=== PATIENT | male | born 1970 | race Hispanic/Latino ===

== ENCOUNTER 2017-01-03 20:30 | Emergency (ER) | payer MEDICAID, OTHER ==
[2017-01-03 20:37] VITALS: BP 129/80; RESP 16; TEMP 98.1; O2SAT 97
[2017-01-03] MEDS ORDERED: Alum-Mag Hydrox-Simethicone Susp (30 mL) PO ONE (21:22)
--- NOTE | 2017-01-03 21:33 | ED PDOC ---
HPI: Chest Pain History Per: Patient History/Exam Limitations: no limitations Onset/Duration Of Symptoms: Days (1.5 weeks) Current Symptoms Are (Timing): Intermittent Episodes Severity: Mild Quality: Burning, Pressure Associated Symptoms: denies: Nausea, Dyspnea, Diaphoresis, Syncope - Risk Factors PE Risk Factors: Neg: Extremity Immobilization/Fx, Decreased Mobilty /Activity, Recent Major Surgery, Recent Hospitalization, Active Cancer, Previous DVT, Previous PE, CHF, Venous Stasis, Recent Major Trauma TAD Risk Factors: Neg: Hypertension, Connective Tissue Disease, Marfan's Syndrome, Eleazar- Danlos Syndrome, Aortic Valve Disease, First Degree Relative With TAD, Sudden Onset Of Pain, Migration Of Pain, New Neurologic Symptoms <Cristi Felder - Last Filed: 01/03/17 23:20> <Arabella Russo - Last Filed: 01/03/17 23:32> Time Seen by Provider: 01/03/17 20:41 Chief Complaint (Nursing): Chest Pain Additional Complaint(s): CC: chest pain HPI: The patient is a 46 y/o man w/ no PMH presents to the ED for chest pain. The patient reports 1.5 weeks of intermittent chest pain, burning in nature, radiation to left and right, but denies nausea, vomiting, SOB, and hemoptysis. The patient came to the ED because he was worried that he had an MT. The patient has an appointment with PMD on 01/16 but was not able to see sooner. The patient reports eating plenty of junk food and drinking soda and redbull which exacerbate symptoms. The patient is relieved when consuming activia yogurt. The patient reports an extensive smoking history of 2 packs/day for almost 30 years. 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 The patient denies headaches, dizziness, cough, SOB, diarrhea, dysuria, and fevers. Allergies: NKDA PMH: none PSH: left elbow pinning 1978 Fam: non-contributory SOC: smokes 2 packs/day for 29 years, sober fro alcohol and rugs for +4 years ROS: negative for 10 systems reviewed except noted in HPI (Cristi Felder) Supervising Attending Note - Supervising Attending Note The Documented history was done by the: Physician Dirt Supervisor, Attending Physician The documented physical exam was done by the: Physician Dirt Supervisor, Attending Physician The documented procedures were done by the: Physician Dirt Supervisor, Attending Physician - Attestation: I have personally seen and examined this patient.: Yes I have fully participated in the care of the patient.: Yes I have reviewed all pertinent clinical information: Yes <Arabella Russo - Last Filed: 01/03/17 23:32> Past Medical History - Medical History PMH: Denies: Chronic Kidney Disease - Family History Family History: States: Unknown Family Hx <Cristi Felder - Last Filed: 01/03/17 23:20> <Arabella Russo - Last Filed: 01/03/17 23:32> Vital Signs: Last Vital Signs Temp 98.1 F 01/03/17 20:37 Pulse 77 01/03/17 20:37 Resp 16 01/03/17 20:37 BP 129/80 01/03/17 20:37 Pulse Ox 97 01/03/17 23:23 - Home Medications Home Medications: Ambulatory Orders Medication Instructions Recorded Famotidine [Pepcid] 20 mg PO DAILY #14 tab 01/03/17 - Allergies Allergies/Adverse Reactions: Allergies Allergy/AdvReac Type Severity Reaction Status Date / Time shellfish derived Allergy Unknown ANAPHYLAXIS Verified 08/25/16 11:42 MICHELLE Risk Score for UA/NSTEMI - MICHELLE Risk Score Age > 64: NO 3 or more CAD Risk Factors: NO Known CAD (Stenosis greater than 50%): NO Aspirin use in past 7 days: NO Severe Angina: NO EKG ST changes greater than 0.5mm: NO Positive Cardiac Marker: NO MICHELLE Score: 0 Risk %: 5% <Cristi Felder - Last Filed: 01/03/17 23:20> Curb-65 Severity Score - CURB-65 Severity Score Confusion: No Bun >19mg/dl (>7mmol/L): No Respiratory Rate greater than/equal to 30: No Systolic BP <90 or Diastolic BP less than/equal 60mmHg: No Age >64: No Curb-65 Score: 0 Percentage 30-day mortality: 0.6% <Cristi Felder - Last Filed: 01/03/17 23:20> Wells Criteria for PE - Wells Criteria for Pulmonary Embolism Clinical Signs and Symptoms of DVT: No P.E is #1 Diagnosis, or Equally Likely: No Heart Rate >100: No Immobilization at least 3 days;Surgery previous 4 weeks: No Previous, objectively diagnosed PE or DVT: No Hemoptysis: No Malignancy w/treatment within 6 months, or palliative: No Total Score: 0 <Cristi Felder - Last Filed: 01/03/17 23:20> Review of Systems Constitutional: Negative for: Fever, Sweats Eyes: Negative for: Pain ENT: Negative for: Throat Pain Cardiovascular: Positive for: Chest Pain. Negative for: Palpitations, Edema, Light Headedness Respiratory: Negative for: Cough, Shortness of Breath, Hemoptysis, SOB with Exertion, Sputum, Wheezing Gastrointestinal: Negative for: Nausea, Vomiting, Abdominal Pain, Diarrhea, Constipation Genitourinary Male: Negative for: Dysuria Musculoskeletal: Negative for: Neck Pain, Arm Pain Skin: Negative for: Rash Neurological: Negative for: Altered Mental Status, Headache <Cristi Felder - Melecio Filed: 01/03/17 23:20> Physical Exam - Physical Exam Appears: Positive for: No Acute Distress Head Exam: Positive for: ATRAUMATIC, NORMOCEPHALIC Skin: Positive for: Normal Color (multiple tattoos), Warm, Dry Eye Exam: Positive for: EOMI, PERRL Neck: Positive for: Normal, Painless ROM, Supple Cardiovascular/Chest: Positive for: Regular Rate, Rhythm, Chest Non Tender. Negative for: Edema, JVD, Murmur, Tachycardia Respiratory: Positive for: Normal Breath Sounds. Negative for: Decreased Breath Sounds, Accessory Muscle Use, Crackles, Rales, Rhonchi, Stridor, Wheezing , Respiratory Distress Pulses-Carotid (L): 2+ Pulses-Carotid (R): 2+ Pulses-Post. Tibialis (L): 2+ Pulses-Post. Tibialis (R): 2+ Pulses-Radial (L): 2+ Pulses-Radial (R): 2+ Gastrointestinal/Abdominal: Positive for: Normal Exam, Bowel Sounds, Soft. Negative for: Tenderness, Distended Extremity: Positive for: Normal ROM. Negative for: Pedal Edema, Calf Tenderness Neurologic/Psych: Positive for: Alert, Oriented <Cristi Felder - Last Filed: 01/03/17 23:20> - Laboratory Results Result Diagrams: 01/03/17 22:24 01/03/17 22:24 - ECG O2 Sat by Pulse Oximetry: 97 <Cristi Felder - Last Filed: 01/03/17 23:20> - Laboratory Results Result Diagrams: 01/03/17 22:24 01/03/17 22:24 - ECG ECG: Positive for: Interpreted By Me, Viewed By Me ECG Rhythm: Positive for: Normal QRS, Normal ST Segment, Sinus Rhythm. Negative for: ST/T Changes Rate: 73 <Arabella Russo - Last Filed: 01/03/17 23:32> Medical Decision Making <Cristi Felder - Last Filed: 01/03/17 23:20> <Arabella Russo - Last Filed: 01/03/17 23:32> Medical Decision Making: The patient is a 46 y/o man w/ no PMH presents to the ED for chest pain 21:00 EKG: NSR, no ST elevation/depression, no inverted T waves CBC w/ diff CMP troponin Maalox PO Pepcid PO re-evaluate smoking cessation counseling counseled on importance of follow up with PMD (Cristi Felder) Disposition - Patient ED Disposition Is Patient to be Admitted: No Discussed With : Arabella Russo Doctor Will See Patient In The: Office Counseled Patient/Family Regarding: Studies Performed, Diagnosis, Need For Followup, Rx Given, Smoking Cessation - Disposition Disposition: Routine/Home Disposition Time: 23:21 - POA Present On Arrival: None <Cristi Felder - Last Filed: 01/03/17 23:20> <Arabella Russo - Last Filed: 01/03/17 23:32> - Clinical Impression Clinical Impression: GERD (gastroesophageal reflux disease) - Disposition Referrals: [facility] [Outside] Condition: GOOD Additional Instructions: Please follow up with PMD as scheduled on 01/16/2017 If chest pain returns worse with shortness of breath, nausea, vomiting, palpitations, faintness/lightheadedness please return to ED Prescriptions: Famotidine [Pepcid] 20 mg PO DAILY #14 tab Instructions: Chest Pain (ED)
[2017-01-03] MEDS ORDERED: Alum-Mag Hydrox-Simethicone Susp (30 mL) ONE (22:02)
[2017-01-03 22:29] LABS: BASO # 0.1 K/uL (0.0-0.2); BASO % 0.5 % (0.0-2.0); EOS # 0.2 K/uL (0.0-0.7); EOS % 1.8 % (0.0-4.0); HEMATOCRIT 42.3 % (35.0-51.0); LYMPH # 4.7 K/uL (1.0-4.3); LYMPH % 41.2 % (20.0-40.0); MEAN CELL VOLUME 88.7 fl (80.0-94.0); MEAN CORPUSCULAR HEMOGLOBIN 30.2 pg (27.0-31.0); MEAN CORPUSCULAR HGB CONC 34.1 g/dL (33.0-37.0); MEAN PLATELET VOLUME 7.2 fl (7.2-11.7); MONO # 0.9 K/uL (0.0-0.8); MONO % 7.9 % (0.0-10.0); NEUT # 5.5 K/uL (1.8-7.0); NEUT % 48.6 % (50.0-75.0); NRBC % 0.1 % (0.0-0.0); RED CELL DISTRIBUTION WIDTH 13.6 % (11.5-14.5); WHITE BLOOD COUNT 11.3 K/uL (4.8-10.8)
[2017-01-03 22:53] LABS: ALB/GLOB RATIO 1.3 (1.0-2.1); ALKALINE PHOSPHATASE 85 U/L (38-126); ALT/SGPT 35 U/L (21-72); AST/SGOT 28 U/L (17-59); BILIRUBIN,TOTAL 0.5 mg/dl (0.2-1.3); BLOOD UREA NITROGEN 17 mg/dl (9-20); CALCIUM 9.4 mg/dL (8.4-10.2); CARBON DIOXIDE 24 mmol/L (22-30); CHLORIDE 107 mmol/L (98-107); GFR AFRICAN-AMERICAN > 60; GLUCOSE,RANDOM 89 mg/dL (75-110); POTASSIUM 3.8 MMOL/L (3.6-5.0); SODIUM 141 mmol/l (132-148); TOTAL PROTEIN 6.8 G/DL (6.3-8.2)
[2017-01-03 23:32] VITALS: PULSE 73
--- NOTE | 2017-01-04 10:02 | CARD ---
APPROVED REPORT EKG Measurement Heart [id number] <Conclusion> Normal sinus rhythm Normal ECG
== END 2017-01-03 23:33 | disposition home or self-care (01) ==
LOC: H.ER 20:30
DX: K21.9 Gastro-esophageal reflux disease without esophagitis (principal)

== ENCOUNTER 2017-03-25 16:03 | Emergency (ER) | payer OTHER ==
[2017-03-25 16:26] VITALS: BP 131/72; PULSE 84; RESP 18; TEMP 98; O2SAT 98
--- NOTE | 2017-03-25 17:08 | ED PDOC ---
HPI: CCC, URI, Sore Throat Time Seen by Provider: 03/25/17 16:35 Chief Complaint (Nursing): ENT Problem Chief Complaint (Provider): Sore Throat History Per: Patient History/Exam Limitations: no limitations Onset/Duration Of Symptoms: Waxing/Waning ("on and off for two months") Current Symptoms Are (Timing): Still Present Associated Symptoms: Fever Additional Complaint(s): Sung Zepeda is a 46 year old male that presents to the ED with a chief complaint of a sore throat that he has been experiencing "on and off for the past two months," along with swelling around his neck. Patient also noted an associated fever this morning. He states that he took Amoxicillin that he had at home, as well as a three day course of Zithromax, and Cephalexin. Patient denies any vomiting or diarrhea. Past Medical History Reviewed: Historical Data, Nursing Documentation, Vital Signs Vital Signs: Last Vital Signs Temp 98 F 03/25/17 16:12 Pulse 84 03/25/17 16:12 Resp 18 03/25/17 16:12 BP 131/72 03/25/17 16:12 Pulse Ox 98 03/25/17 17:11 - Medical History PMH: Denies: Chronic Kidney Disease - Family History Family History: States: Unknown Family Hx - Social History Current smoker - smoking cessation education provided: Yes (heavy smoker) - Home Medications Home Medications: Ambulatory Orders Medication Instructions Recorded Famotidine [Pepcid] 20 mg PO DAILY #14 tab 01/03/17 Ranitidine HCl [Zantac] 150 mg PO DAILY #7 tablet 03/25/17 - Allergies Allergies/Adverse Reactions: Allergies Allergy/AdvReac Type Severity Reaction Status Date / Time shellfish derived Allergy Unknown ANAPHYLAXIS Verified 08/25/16 11:42 Review of Systems Constitutional: Positive for: Fever (this morning) ENT: Positive for: Throat Pain, Throat Swelling (Patient reports swelling around his neck) Gastrointestinal: Negative for: Vomiting, Diarrhea Physical Exam - Reviewed Nursing Documentation Reviewed: Yes Vital Signs Reviewed: Yes - Physical Exam Appears: Positive for: Non-toxic, No Acute Distress Head Exam: Positive for: ATRAUMATIC, NORMOCEPHALIC Skin: Positive for: Normal Color, Warm ENT: Positive for: Pharyngeal Erythema (minimal), Other (Patient is able to open and close jaw.). Negative for: Tonsillar Exudate, Tonsillar Swelling Cardiovascular/Chest: Positive for: Regular Rate, Rhythm. Negative for: Murmur Respiratory: Positive for: Normal Breath Sounds. Negative for: Wheezing Neurologic/Psych: Positive for: Alert, Oriented. Negative for: Motor/Sensory Deficits - ECG O2 Sat by Pulse Oximetry: 98 (RA) Pulse Ox Interpretation: Normal - Progress ED Course And Treament: mono neg rapid strep neg tsh wnl Medical Decision Making Medical Decision Making: Impression: Sore Thorat Plan: * TSH * [place] * Rapid Strep * Reevaluation Scribe Attestation: Documented by Lynne Aguayo, acting as a scribe for Nico Fishman PA-C. Provider Scribe Attestation: All medical record entries made by the Scribe were at my direction and personally dictated by me. I have reviewed the chart and agree that the record accurately reflects my personal performance of the history, physical exam, medical decision making, and the department course for this patient. I have also personally directed, reviewed, and agree with the discharge instructions and disposition. Disposition - Clinical Impression Clinical Impression: Sore throat - Patient ED Disposition Is Patient to be Admitted: No - Disposition Referrals: Adrien Ansari MD [Staff Provider] - Disposition: Routine/Home Disposition Time: 18:13 Condition: FAIR Prescriptions: Ranitidine HCl [Zantac] 150 mg PO DAILY #7 tablet Instructions: Pharyngitis (ED) Forms: [employer] (Guatemalan)
== END 2017-03-25 18:34 | disposition home or self-care (01) ==
LOC: H.ER 16:03
DX: J02.9 Acute pharyngitis, unspecified (principal)

== ENCOUNTER 2017-12-04 00:57 | Emergency (ER) | payer SELFPAY ==
[2017-12-04 01:49] VITALS: PULSE 81; RESP 16; TEMP 98.4; O2SAT 96
[2017-12-04] MEDS ORDERED: Lidocaine 2% Inj (20ml) INFIL ONE (02:09)
[2017-12-04] MEDS ORDERED: Lidocaine 2% Inj (20ml) ONE (02:15)
--- NOTE | 2017-12-04 02:43 | ED PDOC ---
Upper Extremity Pain/Injury Time Seen by Provider: 12/04/17 01:52 Chief Complaint (Nursing): Finger,Hand,&Wrist History Per: Patient History/Exam Limitations: no limitations Onset/Duration Of Symptoms: Days Additional Complaint(s): Smoker, pain and swelling to L middle finger x 3 days, acutely worsened today. 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 Denies fevers. Past Medical History Reviewed: Historical Data, Nursing Documentation, Vital Signs Vital Signs: Last Vital Signs Temp 98.4 F 12/04/17 01:47 Pulse 81 12/04/17 01:47 Resp 16 12/04/17 01:47 BP Pulse Ox 96 12/04/17 01:47 - Medical History PMH: No Chronic Diseases Denies: Chronic Kidney Disease - Family History Family History: States: Unknown Family Hx - Home Medications Home Medications: Ambulatory Orders Medication Instructions Recorded Famotidine [Pepcid] 20 mg PO DAILY #14 tab 01/03/17 Ranitidine HCl [Zantac] 150 mg PO DAILY #7 tablet 03/25/17 - Allergies Allergies/Adverse Reactions: Allergies Allergy/AdvReac Type Severity Reaction Status Date / Time shellfish derived Allergy Unknown ANAPHYLAXIS Verified 08/25/16 11:42 Review of Systems ROS Statement: Except As Marked, All Systems Reviewed And Found Negative Physical Exam - Physical Exam Appears: Positive for: Well Extremity: Positive for: Other (3rd finger of L hand- tip of finger w/ medial swelling and slight erythema, no vesicles) - ECG O2 Sat by Pulse Oximetry: 96 Pulse Ox Interpretation: Normal Medical Decision Making Medical Decision Making: Patient with paronychia, will drain and recommend warm compress to reduce swelling. not concerned for murtaza. Procedures - Incision and Drainage Site: L 3rd finger Blade Size: 10 I & D Procedure: betadine prep Progress: 5cc's of lidocaine used for digital block 10 blade used to lift cuticle and express fluid Disposition - Clinical Impression Clinical Impression: Paronychia - Patient ED Disposition Is Patient to be Admitted: No - Disposition Referrals: [facility] [Outside] Disposition: Routine/Home Disposition Time: 02:44 Condition: IMPROVED Instructions: Paronychia
[2017-12-04 03:10] VITALS: BP 133/71
== END 2017-12-04 03:38 | disposition home or self-care (01) ==
LOC: H.ER 00:57
DX: L03.019 Cellulitis of unspecified finger (principal)

== ENCOUNTER 2018-05-24 13:06 | Emergency (ER) | payer MEDICAID ==
[2018-05-24 13:25] VITALS: O2SAT 98
[2018-05-24] MEDS ORDERED: Albuterol-Ipratrop 3 mg / 0.5 (3 ml) UD INH STA (13:36)
[2018-05-24] MEDS ORDERED: Albuterol 0.083% Inhal Sol (2.5 mg/3 mL) UD INH STA (13:36)
[2018-05-24] MEDS ORDERED: guaiFENesin 200 mg/10 ml Syrup UD PO STA (13:40)
--- NOTE | 2018-05-24 13:48 | ED PDOC ---
HPI: Influenza Time Seen by Provider: 05/24/18 13:14 Chief Complaint: Cough, Cold, Congestion Chief Complaint (Provider): Cough History Per: Patient Exam Limitations: no limitations Onset/Duration Of Symptoms: Other (x2 weeks) Additional complaint(s):: 47 year old male presents to the ED for evaluation of worsening productive cough for the last 2 weeks. Patient states he gave his current symptoms to significant other who is also being evaluated in the ED. Reports productive cough with green phlegm. Reports tactile fever at onset and recent travel to [place]. Significant other had Amoxicillin from [place] so patient took 9 doses of 500mg but denied taking medications today. Denies chills, ear pain, throat pain, abdominal pain, chest pain, headache, dizziness, nausea, vomiting, diarrhea, or rash. Of note, patient admits to smoking 2 packs of cigarettes daily. PMD: none Past Medical History Reviewed: Historical Data, Nursing Documentation, Vital Signs Vital Signs: Last Vital Signs Temp 98.1 F 05/24/18 13:23 Pulse 79 05/24/18 13:23 Resp 20 05/24/18 13:23 BP 118/71 05/24/18 13:23 Pulse Ox 98 05/24/18 13:23 - Medical History PMH: No Chronic Diseases - Surgical History Other surgeries: ORIF of left elbow - Family History Family History: States: Unknown Family Hx - Social History Current smoker - smoking cessation education provided: Yes (2 packs daily) Alcohol: Other (Former alcoholic, clean 5 years) Drugs: Cocaine (Former cocaine abuser, clean 5 years) - Home Medications Home Medications: Ambulatory Orders Medication Instructions Recorded Famotidine [Pepcid] 20 mg PO DAILY #14 tab 01/03/17 Ranitidine HCl [Zantac] 150 mg PO DAILY #7 tablet 03/25/17 Albuterol Sulfate [Ventolin Hfa] 1 puff IH Q4 #1 unit 05/24/18 Azithromycin [Z-Kavin] 250 mg PO DAILY #6 tab 05/24/18 Promethazine DM [Phenergan DM 5 ml PO Q6 PRN #150 ml 05/24/18 Syrup] - Allergies Allergies/Adverse Reactions: Allergies Allergy/AdvReac Type Severity Reaction Status Date / Time shellfish derived Allergy Unknown ANAPHYLAXIS Verified 05/24/18 13:23 Review of Systems ROS Statement: Except As Marked, All Systems Reviewed And Found Negative Constitutional: Negative for: Chills ENT: Negative for: Ear Pain, Throat Pain Cardiovascular: Negative for: Chest Pain Respiratory: Positive for: Cough (productive) Gastrointestinal: Negative for: Nausea, Vomiting, Abdominal Pain, Diarrhea Skin: Negative for: Rash Neurological: Negative for: Headache, Dizziness Physical Exam - Reviewed Nursing Documentation Reviewed: Yes Vital Signs Reviewed: Yes - Physical Exam Comments: GENERAL APPEARANCE: Patient is awake, alert, oriented x 3, in no acute distress. Resting comfortably and speaking in full sentences. SKIN: Warm, dry; (-) cyanosis. ENMT: Mucous membranes moist. Airway patent: (-) stridor. Pharynx: clear, uvula midline (-) erythema, (-) exudate. TMs: nonbulging, nonerythematous bilaterally. Nares: patent. (-) sinus tenderness. NECK: Supple, FROM (-) tenderness, (-) stiffness, (-) lymphadenopathy. CHEST AND RESPIRATORY: (+) scattered rhonchi, (-) rales, (-) wheezes; breath sounds decreased bilaterally. Respirations even and nonlabored. HEART AND CARDIOVASCULAR: (-) irregularity ABDOMEN AND GI: Soft; (-) tenderness (-) guarding (-) distention. EXTREMITIES: (-) deformity; (-) edema. NEURO AND PSYCH: Mental status as above. Cranial nerves grossly intact; strength symmetric. EOMI. Gait: steady. Speech: clear. (-) facial asymmetry (-) aphasia (-) focal findings Medical Decision Making Medical Decision Making: Initial Impression: Acute cough, probable bronchitis Initial Plan: Chest X-ray Albuterol 2.5mg INH Duoneb INH Robitussin 200mg PO Patient counselled on smoking cessation. Re-evaluation 244 Date of service: 05/24/2018 HISTORY: cough x2 weeks COMPARISON: Chest radiograph dated 02/19/2013 TECHNIQUE: Chest PA and lateral FINDINGS: LUNGS: No active pulmonary disease. PLEURA: No significant pleural effusion identified. No pneumothorax apparent. CARDIOVASCULAR: Normal. OSSEOUS STRUCTURES: No significant abnormalities. VISUALIZED UPPER ABDOMEN: Normal. OTHER FINDINGS: None. IMPRESSION: No active disease. Given rhonchi on exam and history of heavy smoking, Azithromycin 500mg PO ordered for clinical bronchitis. 1515 On re-evaluation, patient reports improvement of symptoms. On exam, patient remains AAOx3, in no acute distress. Lungs clear to auscultation, cardiac RRR, repeat neuro exam shows no focal findings. Vitals stable. Lab/Diagnostic results d/w the patient in great detail. Diagnosis of acute cough, tobacco abuse, bronchitis d/w the patient. Based on history, exam and diagnostic results, plan will be for outpatient follow up. Patient instructed to follow-up with pmd / referral provided / the clinic in 1- 2 days without fail. Advised to take medication as prescribed. Return to the emergency room at any time for any new or worsening symptoms. Patient states he fully agrees with and understands discharge instructions. States that he agrees with the plan and disposition. Verbalized and repeated discharge instructions and plan. I have given the patient opportunity to ask any additional questions. Scribe Attestation: Documented by Gulshan Gardner acting as a scribe for Maureen WHITLEY. Provider Scribe Attestation: All medical record entries made by the Scribe were at my direction and personally dictated by me. I have reviewed the chart and agree that the record accurately reflects my personal performance of the history, physical exam, medical decision making, and the department course for this patient. I have also personally directed, reviewed, and agree with the discharge instructions and disposition. - ECG O2 Sat by Pulse Oximetry: 98 (RA) Pulse Ox Interpretation: Normal Disposition - Clinical Impression Clinical Impression: Cough, Bronchitis, Tobacco abuse, Congestion of upper respiratory tract - Patient ED Disposition Is Patient to be Admitted: No Counseled Patient/Family Regarding: Studies Performed, Diagnosis, Need For Followup, Rx Given, Smoking Cessation - Disposition Referrals: [facility] [Outside] Disposition: Routine/Home Disposition Time: 15:15 Condition: STABLE Additional Instructions: The emergency medical care you received today was directed at your acute symptoms. If you were prescribed any medication, please fill it and take as directed. It may take several days for your symptoms to resolve. Return to the Emergency Department if your symptoms worsen, do not improve, or if you have any other problems. Please contact your doctor in 2 days for re-evaluation and follow up / or call one of the physicians/clinics you have been referred to that are listed on the Patient Visit Information form that is included in your discharge packet. Bring any paperwork you were given at discharge with you along with any medications you are taking to your follow up visit. Our treatment cannot replace ongoing medical care by a primary care provider (PCP) outside of the emergency department. Prescriptions: Albuterol Sulfate [Ventolin Hfa] 1 puff IH Q4 #1 unit Azithromycin [Z-Kavin] 250 mg PO DAILY #6 tab Promethazine DM [Phenergan DM Syrup] 5 ml PO Q6 PRN #150 ml PRN Reason: Cough Instructions: Cough in Adults, Smoking: Not Just Harmful to Your Lungs and Heart, Acute Bronchitis, Bacterial Upper Respiratory Infection, Adult Forms: [facility] (Divehi) Print Language: ICELANDIC - POA Present On Arrival: None
[2018-05-24] MEDS ORDERED: guaiFENesin 100 mg/5 ml Syrup UD ONE (13:49)
[2018-05-24] MEDS ORDERED: guaiFENesin 100 mg/5 ml Syrup UD PO STA (14:18)
--- NOTE | 2018-05-24 14:30 | RAD ---
Date of service: 05/24/2018 HISTORY: cough x2 weeks COMPARISON: Chest radiograph dated 02/19/2013 TECHNIQUE: Chest PA and lateral FINDINGS: LUNGS: No active pulmonary disease. PLEURA: No significant pleural effusion identified. No pneumothorax apparent. CARDIOVASCULAR: Normal. OSSEOUS STRUCTURES: No significant abnormalities. VISUALIZED UPPER ABDOMEN: Normal. OTHER FINDINGS: None. IMPRESSION: No active disease.
[2018-05-24 16:19] VITALS: BP 122/78; PULSE 76; RESP 16; TEMP 98
== END 2018-05-24 15:50 | disposition home or self-care (01) ==
LOC: H.ER 13:06
DX: J40 Bronchitis, not specified as acute or chronic (principal); R05 Cough; R09.89 Other specified symptoms and signs involving the circulatory and respiratory systems; F17.200 Nicotine dependence, unspecified, uncomplicated

== ENCOUNTER 2018-08-22 12:22 | Emergency (ER) | payer SELFPAY ==
[2018-08-22] MEDS ORDERED: Naproxen 500 MG TAB PO STA (12:36)
[2018-08-22] MEDS ORDERED: Naproxen 500 MG TAB PO ONE (12:44)
--- NOTE | 2018-08-22 12:45 | ED PDOC ---
Lower Extremity Pain/Injury Time Seen by Provider: 08/22/18 12:32 Chief Complaint (Nursing): Lower Extremity Problem/Injury Chief Complaint (Provider): Right Foot Pain History Per: Patient History/Exam Limitations: no limitations Onset/Duration Of Symptoms: Days (x1 month) Current Symptoms Are (Timing): Still Present Additional Complaint(s): 47 year old male presents to the ED for evaluation of right foot pain for the past month. Patient reports that he is unsure if he stepped on something, but feels as if there is a foreign body in his heel. Denies trauma, falls, or taking meds prior to arrival. He notes the pain has been worsening and now he cannot walk barefoot because of it. At onset of sx, he states he blindly attempted to remove the possible foreign body, but was unsuccessful. Denies other complaints. PMD: none provided Past Medical History Reviewed: Historical Data, Nursing Documentation, Vital Signs - Medical History PMH: Fractures - Surgical History Other surgeries: surgery for left elbow fx - Family History Family History: States: Unknown Family Hx - Social History Current smoker - smoking cessation education provided: Yes (heavy) Alcohol: Other (former alcohol abuser (recovering x3 years)) Drugs: Other (former drug abuser (recovering x3 years)) - Home Medications Home Medications: Ambulatory Orders Medication Instructions Recorded Famotidine [Pepcid] 20 mg PO DAILY #14 tab 01/03/17 Ranitidine HCl [Zantac] 150 mg PO DAILY #7 tablet 03/25/17 Albuterol Sulfate [Ventolin Hfa] 1 puff IH Q4 #1 unit 05/24/18 RX: Azithromycin [Z-Kavin] 250 mg PO DAILY #6 tab 05/24/18 RX: Promethazine DM [Phenergan DM 5 ml PO Q6 PRN #150 ml 05/24/18 Syrup] RX: Naproxen 500 mg PO BID PRN #20 tab 08/22/18 - Allergies Allergies/Adverse Reactions: Allergies Allergy/AdvReac Type Severity Reaction Status Date / Time shellfish derived Allergy Unknown ANAPHYLAXIS Verified 05/24/18 13:23 Review of Systems ROS Statement: Except As Marked, All Systems Reviewed And Found Negative Musculoskeletal: Positive for: Foot Pain (right, worsening) Physical Exam - Reviewed Nursing Documentation Reviewed: Yes Vital Signs Reviewed: Yes - Physical Exam Comments: GENERAL APPEARANCE: Patient is awake, alert, oriented x 3, in no acute distress. Resting comfortably. SKIN: Warm, dry; (-) cyanosis. NECK: Supple ENT: Mucus membranes moist. Airway patent, (-) stridor. RIGHT LOWER EXTREMITY: Foot: Full ROM, (+) mild tenderness to medial aspect of heel with a 1cm x 1cm callous present to the hindfoot, (-) palpable or visualized foreign body, (-) erythema, (-) edema (-) warmth (-) tenderness. Remainder of foot and LE nontender with full ROM (-) tenderness. (+) distal pulse. CARDIOVASCULAR: RRR RESPIRATORY: lungs cleared to auscultation bilaterally (-) rales (-) wheezing (- ) rhonchi NEUROLOGIC: (+) distal sensation. Medical Decision Making Medical Decision Making: Initial Impression: concern for possible foreign body in foot Time: 1235 Initial Plan: --Naproxen 500mg PO --Right foot XR --Re-evaluation 1335 Foot XR: (-) fracture (-) visualized FB as read by Ga POLLOCK On re-evaluation, patient reports improvement of symptoms. On exam, patient remains AAOx3, in no acute distress. Vitals stable. Lab/Diagnostic results d/w the patient in great detail. Diagnosis of acute foot pain d/w the patient. Based on history, exam and diagnostic results, plan will be for outpatient follow up with podiatry. Patient instructed to follow-up with pmd / referral provided / the clinic in 1- 2 days without fail. Advised to take medication as prescribed. Return to the emergency room at any time for any new or worsening symptoms. Patient states he fully agrees with and understands discharge instructions. States that he agrees with the plan and disposition. Verbalized and repeated discharge instructions and plan. I have given the patient opportunity to ask any additional questions. Scribe Attestation: Documented by Lena Wagner, acting as a scribe for Maureen Koroma PA-C. Provider Scribe Attestation: All medical record entries made by the Scribe were at my direction and personally dictated by me. I have reviewed the chart and agree that the record accurately reflects my personal performance of the history, physical exam, medical decision making, and the department course for this patient. I have also personally directed, reviewed, and agree with the discharge instructions and disposition. Disposition - Clinical Impression Clinical Impression: Acute foot pain - Patient ED Disposition Is Patient to be Admitted: No Counseled Patient/Family Regarding: Studies Performed, Diagnosis, Need For Followup, Rx Given - Disposition Referrals: Podiatry Clinic [Outside] Artem Freitas DPM [Staff Provider] - Disposition: Routine/Home Disposition Time: 13:35 Condition: STABLE Additional Instructions: The emergency medical care you received today was directed at your acute symptoms. If you were prescribed any medication, please fill it and take as directed. It may take several days for your symptoms to resolve. Return to the Emergency Department if your symptoms worsen, do not improve, or if you have any other problems. Please contact your doctor in 2 days for re-evaluation and follow up / or call one of the physicians/clinics you have been referred to that are listed on the Patient Visit Information form that is included in your discharge packet. Bring any paperwork you were given at discharge with you along with any medications you are taking to your follow up visit. Our treatment cannot replace ongoing medical care by a primary care provider (PCP) outside of the emergency dep artment. Prescriptions: RX: Naproxen 500 mg PO BID PRN #20 tab PRN Reason: Pain, Moderate (4-7) Instructions: Skin Warts, Muscle and Bone Pain (DC) Forms: [employer] ([place]) Print Language: [place] - POA Present On Arrival: None
[2018-08-22 13:54] VITALS: O2SAT 98
[2018-08-22 14:04] VITALS: BP 113/72; PULSE 62; RESP 20; TEMP 98.2
--- NOTE | 2018-08-22 15:10 | RAD ---
Date of service: 08/22/2018 PROCEDURE: Right Foot Radiographs. HISTORY: r/o FB to heel COMPARISON: None. FINDINGS: BONES: Normal. No fracture. JOINTS: Normal. SOFT TISSUES: Normal. OTHER FINDINGS: None. IMPRESSION: Normal right foot radiographs. No visualized radiopaque foreign body.
== END 2018-08-22 14:16 | disposition home or self-care (01) ==
LOC: H.ER 12:22 → SUPCPDRO 12:22 → H.ER 14:16
DX: M79.671 Pain in right foot (principal)